=== PATIENT | female | born 1970 | race Caucasian/White ===

== ENCOUNTER 2020-04-09 17:26 | Emergency (ER) | payer OTHER ==
[~2020-04-09] VITALS: Ht 167.6 cm; Wt 68.0 kg
[2020-04-09 19:58] VITALS: BP 73/45
== END 2020-04-09 19:58 | disposition home or self-care (01) ==
LOC: ER 17:26
DX: F10.920 Alcohol use, unspecified with intoxication, uncomplicated (principal); R40.20 Unspecified coma